=== PATIENT | female | born 1950 | race African-American/Black ===

== ENCOUNTER 2016-05-25 21:10 | Emergency (ER) | payer OTHER ==
--- NOTE | 2016-05-25 23:53 | PROVIDER DOCUMENTATION ---
HPI-EENT General - General Chief Complaint: Cold Symptoms Stated Complaint: "stuffed up in my nose,coughing" Time Seen by Provider: 05/25/16 21:42 Allergies/Adverse Reactions: Patient Allergies Allergy/AdvReac Type Severity Reaction Status Date / Time No Known Allergies Allergy Verified 05/25/16 21:22 Home Medications: Home Medication List Medication Instructions Recorded Confirmed Last Taken Type Furosemide [Lasix] 40 mg PO DAILY 03/16/12 05/25/16 05/25/16 History Insulin Glargine [Lantus] 24 unit SUBQ QHS 03/16/12 05/25/16 05/24/16 History Metformin [Glucophage] 500 mg PO BID CC 03/16/12 05/25/16 05/25/16 History Potassium Chloride 20 meq PO BID 03/16/12 05/25/16 05/25/16 History ROSUVAstatin [Crestor] 5 mg PO HS 03/16/12 05/25/16 05/25/16 History Fluoxetine [Prozac] 20 mg PO DAILY 04/01/13 05/25/16 05/24/16 History Clonidine [Catapres] 1.5 mg PO BID #30 tablet 06/30/15 05/25/16 01/07/16 Rx Travoprost (Benzalkonium) 2 drop LEFT EYE DAILY 01/07/16 05/25/16 05/25/16 History [Travoprost 0.004% Eye Drop] Acetaminophen/Chlorpheniramine 2 each PO 4XDAY PRN PRN #20 tablet 05/25/16 Unknown Rx [Coricidin Hbp Cold & Flu Tab] Lisinopril/Hydrochlorothiazide 40 mg PO DAILY 05/25/16 05/25/16 05/25/16 History [Lisinopril-Hctz 20-25 mg Tab] Past History - Adult - PAST MEDICAL HISTORY-ADULT Major Childhood Illnesses: reports: history unknown Cardiovascular: reports: HTN, hyperlipidemia Respiratory: reports: asthma Gastrointestinal: reports: GERD Obstetrical/Gynecological: reports: denies history Genitourinary: reports: denies history Musculoskeletal: reports: denies history Neurological: reports: denies history Endocrine/Immune: reports: anemia, Diabetes Other Conditions: reports: denies history Additional History: NIDDM, HTN - PRIOR SURGERIES/PROCEDURES Surgical/Procedure History: reports: hysterectomy, other (ectopic ) - IMMUNIZATION STATUS Childhood Immunizations: See Nurse Assessment Flu Vaccine: See Nurse Assessment - FAMILY HISTORY Family History: reviewed, not pertinent Departure - Departure Time of Disposition Order: 23:47 DIAGNOSIS: Upper respiratory infection Qualifiers: URI type: unspecified viral URI Qualified Code(s): J06.9 - Acute upper respiratory infection, unspecified; B97.89 - Other viral agents as the cause of diseases classified elsewhere Disposition: HOME 01 Certified Medical Emergency: Emergent Condition: Stable Additional Instructions: Follow up with Dr. Matthew next week, seek care for any new or concerning symptoms. ED Follow Up Instructions: You have been treated by a care provider in the Emergency Department. These instructions are being provided to you so you can have an understanding of how to care for yourself upon discharge. Upon discharge from the Emergency Department, you are responsible for making arrangements for follow-up care by a physician of your choice. Take all prescribed medications as directed. Return to the Emergency Department immediately for any new or worsening symptoms. You may call the Physician Referral phone number at [phone] to obtain a list of Physicians who are taking new patients. Prescriptions: Acetaminophen/Chlorpheniramine [Coricidin Hbp Cold & Flu Tab] 2 each PO 4XDAY PRN PRN #20 tablet PRN Reason: cough, congetsion Attestation - Physician/ NATALEE Attestation Patient care was provided by Advanced Practice Provider:: Yes Advanced Practice Provider:: Narendra Hsu Advanced Practice Provider documentation review:: The Mid-level provider documentation, treatment plan and medical decision making was reviewed by the physician who agrees with all treatment and medical decision making by the MLP.
[2016-05-26 00:05] VITALS: BP 168/77
--- NOTE | 2016-05-26 07:38 | Diag Imaging Result Document ---
PROCEDURE NAME: CHEST-2 VIEWS - 05/25/2016 FRONTAL AND LATERAL CHEST, TWO VIEWS: COMPARISON: Compared to 01/19/2016. FINDINGS: The lungs are well expanded. The heart is not enlarged. The vessels are not distended. There are no infiltrates. No pleural effusions. IMPRESSION: No pneumonia.
== END 2016-05-26 00:05 | disposition home or self-care (01) ==
LOC: ED 21:10
DX: J06.9 Acute upper respiratory infection, unspecified (principal); R05 Cough; R09.81 Nasal congestion; R51 Headache; I10 Essential (primary) hypertension; E78.5 Hyperlipidemia, unspecified; E11.9 Type 2 diabetes mellitus without complications; Z79.4 Long term (current) use of insulin; Z79.899 Other long term (current) drug therapy
CPT/HCPCS: 71020; 87804